=== PATIENT | male | born 1995 ===

== ENCOUNTER 2024-05-09 19:32 | Emergency (ER) | payer OTHER ==
[2024-05-09 20:10] VITALS: BP 126/85; PULSE 79; RESP 18; TEMP 97.7; BMI 26.2
== END 2024-05-09 21:26 | disposition home or self-care (01) ==
LOC: JERFT 19:32
DX: M25.512 Pain in left shoulder (principal); X50.1XXA Overexertion from prolonged static or awkward postures, initial encounter
CPT/HCPCS: 73030-TC-LT-FY; 99283-25